=== PATIENT | female | born 1975 | race Hispanic/Latino ===

== ENCOUNTER 2018-07-13 15:18 | Inpatient (IN) | payer SELFPAY ==
[~2018-07-13] VITALS: Ht 154.9 cm; Wt 54.2 kg
[~2018-07-13 15:18] MED LIST: APIX5TAB PO
[2018-07-13 16:16] LABS: BASOPHILS % (AUTO) 0.6 % (0.0-5.0); EOSINOPHILS % (AUTO) 0.7 % (0.0-8.0); HEMATOCRIT 36.3 % (36-48); LYMPHOCYTES % (AUTO) 18.7 % (21.0-51.0); MEAN CORPUSCULAR HEMOGLOBIN 29.1 pg (27.0-33.0); MEAN CORPUSCULAR VOLUME 85.5 fL (79-99); MONOCYTES % (AUTO) 4.9 % (3.0-13.0); NEUTROPHILS % (AUTO) 75.1 % (40.0-77.0); PLATELET COUNT (AUTO) 280 K/uL (130-400); RED BLOOD CELL COUNT(AUTO) 4.25 MIL/uL (4.00-5.50); RED CELL DISTRIBUTION WIDTH 15.1 % (11.0-15.5); WHITE BLOOD COUNT (AUTO) 8.4 K/uL (4.8-10.8)
[2018-07-13 16:29] LABS: CREATININE 0.7 mg/dL (0.5-1.5); POTASSIUM 3.6 mmol/L (3.5-5.1)
[2018-07-13 16:31] LABS: INR 1.01 (0.85-1.15); PARTIAL THROMBOPLASTIN TIME 26.2 SEC (26.3-35.5); PROTHROMBIN TIME 10.6 SEC (9.6-11.6)
[2018-07-13 16:34] LABS: ALBUMIN 3.4 g/dL (3.5-5.0); BILIRUBIN,TOTAL 0.2 mg/dL (0.2-1.0); TOTAL PROTEIN, SERUM 7.1 g/dL (6.0-8.3)
[2018-07-13 16:44] LABS: APPEARANCE,URINE TURBID (CLEAR); BILIRUBIN,URINE NEGATIVE (NEGATIVE); COLOR,URINE RED (YELLOW); GLUCOSE, URINE (UA) NEGATIVE (NEGATIVE); KETONES,URINE NEGATIVE (NEGATIVE); LEUKOCYTE ESTERASE ,URINE TRACE (NEGATIVE); NITRATE,URINE POSITIVE (NEGATIVE); OCCULT BLOOD,URINE LARGE (NEGATIVE); PH,URINE 5.5 (5.0-8.0); PROTEIN,URINE 100 mg/dL (NEGATIVE)
[2018-07-13 16:58] LABS: RBC,URINE Full Field /HPF (0-1)
[2018-07-13 16:59] LABS: BACTERIA,URINE Few /HPF (None Seen)
[2018-07-13 17:00] LABS: HCG,QUAL RESULT NEGATIVE (NEGATIVE)
[2018-07-13 17:03] LABS: AMPHET/METH SCREEN,URINE NEGATIVE (NEGATIVE); BARBITURATE SCREEN, URINE NEGATIVE (NEGATIVE); BENZODIAZEPINES SCREEN,URINE NEGATIVE (NEGATIVE); CANNABINOID SCREEN,URINE NEGATIVE (NEGATIVE); COCAINE SCREEN,URINE NEGATIVE (NEGATIVE); OPIATE SCREEN,URINE NEGATIVE (NEGATIVE); PHENCYCLIDINE SCREEN,URINE NEGATIVE (NEGATIVE)
[2018-07-13] MEDS ORDERED: ONDANSETRON HCL 4 MG/2 ML VIAL IV PRN (19:00)
[2018-07-13] MEDS ORDERED: ACETAMINOPHEN 325 MG TAB PO PRN ×2 (19:00)
[2018-07-13 20:12] VITALS: BP 138/97
[2018-07-13] MEDS: FAMOTIDINE/PF 20 MG/2 ML VIAL IV SCH (21:53)
[2018-07-14] VITALS (12 sets, daily range): BP systolic 121–149; BP diastolic 77–108
--- NOTE | 2018-07-14 04:52 | NUR ---
NEURO STATUS Pt awake,alert,denies numbness or tingling.Pt has residual episode of garbled speech from previous CVA.
[2018-07-14] MEDS: FAMOTIDINE/PF 20 MG/2 ML VIAL IV SCH ×2 (08:34→21:02)
--- NOTE | 2018-07-14 10:45 | NUR ---
DYSPHAGIA EVAL COMPLETE. -S/S OF ASPIRATION. RECOMMEND REGULAR, THIN LIQUID DIET; PILLS WHOLE WITH LIQUIDS. PATIENT INFORMATION: Pt IS A 43 Y.O. FEMALE REFERRED FOR A BEDSIDE DYSPHAGIA EVALUATION SECONDARY TO CVA DIAGNOSIS. Pt COOPERATIVE DURING THE EVALUATION. Pt CURRENTLY ADMITTED SECONDARY TO CVA AND PFO. 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 MBSS COMPLETED IN LAST ADMISSION (04/22/2018): WITHIN FUNCTIONAL LIMITS. EVALUATION: SWALLOW FUNCTION AND EFFICIENCY WITHIN FUNCTIONAL LIMITS. ORAL MOTOR STRENGTH, COORDINATION, AND ROM WITHIN FUNCTIONAL LIMITS. LARYNGEAL ELEVATION/EXCURSION STRONG WITH TIMELY PHARYNGEAL RESPONSE. NO OVERT SIGNS OR SYMPTOMS OF ASPIRATION PRESENT AT BEDSIDE. VOCAL QUALITY CLEAR WITH NO THROAT CLEAR OR COUGH RESPONSE PRESENT. RECOMMENDATIONS: 1. REGULAR TEXTURE, THIN LIQUID DIET; PILLS WHOLE WITH LIQUIDS. 2. COMPENSATORY STRATEGIES (PROPHYLAXIS): *SEATED AT 90 DEGREE ANGLE G-CODES SWALLOWING: [id number] Addendum: 07/14/18 at [address] Amended: Links added.
--- NOTE | 2018-07-14 11:00 | NUR ---
COGNITIVE/LINGUISTIC EVLA COMPLETED. Pt WITH MOTOR SPEECH AND COGNITIVE DEFICITS (FROM PAST CVA), AT BASELINE. PATIENT INFORMATION: Pt IS A 43 Y.O. FEMALE REFERRED FOR A COGNITIVE-LINGUISTIC EVALUATION SECONDARY TO CVA DIAGNOSIS. Pt COOPERATIVE DURING THE EVALUATION. Pt CURRENTLY ADMITTED SECONDARY TO CVA AND PFO. Pt HAS A PAST MEDICAL HISTORY SIGNIFICANT FOR LEFT POSTERIOR FRONTAL LOBE AND LEFT PARIETAL LOBE CVA IN 2008, AND LUMPECTOMY X2. MBSS COMPLETED IN LAST ADMISSION (04/22/2018): WITHIN FUNCTIONAL LIMITS. PLEASE NOTE Pt WITH COGNITIVE/LINGUISTIC DEFICITS FROM PREVIOUS CVA. EVALUATION: Pt AAOX4 INDEPENDENTLY. Pt ABLE TO FOLLOW SIMPLE 1-2 STEP COMMANDS. PT ABLE TO REQUEST WANTS AND NEEDS INDEPENDENTLY. Pt WITH ADEQUATE SAFETY AWARENESS. Pt ABLE TO COMPLETE CONCENTRATION TASKS WITH MINIMUM ASSISTANCE (SIMPLE MATH). Pt IS INTELLIGIBLE AT 80% ACCURACY; MILD DYSARTHRIA. Pt WITH DECREASED WORD FINDING ABILITY (SOME CIRCUMLOCUTION PRESENT). DESPITE AFOREMENTIONED WEAKNESSES, Pt IS AT BASELINE AND IS FUNCTIONAL AND SAFE IN ALL ENVIRONMENT. DEFICITS ARE NOT ACUTE. SKILLED SPEECH THERAPY IS NOT RECOMMENDED AT THIS TIME. G-CODES SWALLOWING: [id number] Addendum: 07/14/18 at 1607 by NIC PHIPPS [facility] Amended: Links added.
--- NOTE | 2018-07-14 11:00 | NUR ---
DR. YOBANY DRAKE. ASSESSED PATIENT, STATED PATIENT NOT TAKING ELIQUIS AT HOME FOR SEVERAL WEEKS NOW. CARDIOLOGY ON THE CASE TO ORDER POSSIBLE DEUCE OR RESTART ELIQUIS. PATIENT STATING WANTS TO GO HOME TODAY.
--- NOTE | 2018-07-14 11:10 | NUR ---
MAGDY ROSE ( CARDIOLOGY ) ROUNDED, SPOKE TO PATIENT REGARDING PROCEDURE DEUCE. STATED MAY GIVE LOVENOX AFTER PROCEDURE. DR. CEM CLIFTON WILL BE PERFORMING DEUCE TODAY.
[2018-07-14] MEDS ORDERED: LIDOCAINE HCL 2% VISCOUS 15 ML UDCUP ONE (13:18)
[2018-07-14] MEDS ORDERED: FENTANYL CITRATE PF 50 MCG/1 ML 2ML VIAL ONE (13:22)
[2018-07-14] MEDS ORDERED: MIDAZOLAM HCL 1 MG/ML 2ML VIAL ONE (13:22)
--- NOTE | 2018-07-14 15:00 | NUR ---
DEUCE WITH BUBBLE STUDY PROCEDURE PERFORMED BY DR Hailey CLIFTON AND TOLERATED PROCEDURE. END OF PROCEDURE AT 1440. PATIENT RECOVERED IN PROCEDURE ROOM. REPORT GIVEN TO Carol DAVID LVN AND PATIENT TRANSPORTED TO [facility] VIA BED AT 1500. DROWSY AND RESPONDS TO STIMULI WITH NO C/O PAIN.
[2018-07-14] MEDS: CEFTRIAXONE SODIUM 1 GM IVP SCH (15:14)
[2018-07-14] MEDS: ENOXAPARIN SODIUM 40 MG/0.4 ML SYRINGE SQ SCH (17:35)
--- NOTE | 2018-07-14 18:46 | NUR ---
Nutrition Intervention: Nutrition consult due to trigger. Pt. admitted with Dx of CVA, PFO. Pt. on Heart Healthy diet with good p.o. intake, as per pt. Labs reviewed(Alb 3.4). LBM: 07/14/18. SR-22, tight. BMI: 22.6, normal. S/p Dysphagia evaluation on 07/14/18- FIELD ASSOCIATE rec. Reg. texture with thin liquids. Recommendations: 1) Continue current diet. 2) Continue to monitor pt's nutritional status. 3) Consult RD as nutrition concerns arise.
--- NOTE | 2018-07-14 19:54 | NUR ---
CM note met with patient and resides at home with 17 yo daughter, independent with adls and ambulation. no dme. no services. 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 states no dc needs. daughter to assist as needed. pt goes to [facility] for md followup provided pt with low income clinics in the area and importance of med compliance and md followup. pt verbalizes understanding. Addendum: 07/14/18 at 1956 by DALLIN GALICIA CM Amended: Links added.
[2018-07-15] VITALS: BP 127/79
[2018-07-15 04:00] VITALS: BP 113/79
--- NOTE | 2018-07-15 06:10 | NUR ---
STATUS Pt remains stable,no complaints overnight.
[2018-07-15 07:00] VITALS: BP 129/85
[2018-07-15] MEDS: ENOXAPARIN SODIUM 40 MG/0.4 ML SYRINGE SQ SCH (09:00)
[2018-07-15] MEDS ORDERED: APIXABAN 5 MG TABLET PO ONE (09:09)
[2018-07-15] MEDS: FAMOTIDINE/PF 20 MG/2 ML VIAL IV SCH (09:21)
[2018-07-15 11:00] VITALS: BP 122/82
[2018-07-15] MEDS: CEFTRIAXONE SODIUM 1 GM IVP SCH (12:41)
[2018-07-15] MEDS ORDERED: ATOR10 PO (13:03)
--- NOTE | 2018-07-15 13:55 | NUR ---
DISCHARGE PATIENT GIVEN DISCHARGE INSTRUCTIONS VIA TEACH BACK. PATIENT TO FOLLOW UP WITH PCP, DR. HAYWOOD AND DR. MEREDITH. RX GIVEN FOR LIPITOR 20MG 1 TAB PO HS. PATIENT INSTRUCTED TO CONTINUE TAKEN ELIQUIS 5MG 1 TAB PO BID INSTRUCTED BY DR. HAYWOOD AND DR. MEREDITH. PATIENT INSTRUCTED TO FOLLOW UP WITH [facility] DR. MEREDITH. SPOKE TO BEVERLY AT [facility], PATIENT WOULD NEED TO PAY $250 TO $300 PRIOR TO RECEIVING MONITOR DUE TO NO INSURANCE. PATIENT STATED IS AWARE OF THE COST DUE TO HAVING HAD THE MONITOR BACK IN MARCH OR APRIL OF THIS YEAR. PATIENT REINSTRUCTED ON THE IMPORTANCE OF TAKING ELIQUIS AND LIPITOR. TIA HANDOUT WAS EXPLAINED AND COPY GIVEN. PATIENT SIGNED IN AGREEMENT. 20G PIV TO RAC DISCONTINUED, TIP INTACT. TELE GARRICK REMOVED, YUN SHIRLEY RETURNED TO TELEMETRY. PATIENT STABLE AT THIS TIME. PATIENT WHEELED DOWNSTAIRS BY CASPER MALCOLM.
[2018-07-15] MEDS ORDERED: APIXABAN 5 MG TABLET PO SCH (21:00)
[2018-07-15] MEDS ORDERED: ATORVASTATIN CALCIUM 20 MG TABLET PO SCH (21:00)
== END 2018-07-15 13:55 | disposition home or self-care (01) | DRG 65 ==
LOC: EDH 15:18 → EDHIP 15:19 → 3CH 19:48
PROVIDERS: ADMIT Family Medicine; ATTEND Family Medicine
DX: I63.9 Cerebral infarction, unspecified (principal); N39.0 Urinary tract infection, site not specified; Q21.1 Atrial septal defect; D68.59 Other primary thrombophilia; E11.9 Type 2 diabetes mellitus without complications; I45.9 Conduction disorder, unspecified; I48.91 Unspecified atrial fibrillation; J45.909 Unspecified asthma, uncomplicated; Z79.01 Long term (current) use of anticoagulants; Z86.73 Personal history of transient ischemic attack (TIA), and cerebral infarction without residual deficits; Z91.14 Patient's other noncompliance with medication regimen
CPT/HCPCS: 36415; 70450; 70551; 80053; 80305; 81001; 81025; 82550; 84484; 85025; 85610; 85730; 92522; 92610; 93005; 93313; 99152; 99153; 99291; A4218; G0378; J0696; J1650; J2250; J3010; J3490

== ENCOUNTER 2018-07-30 08:39 | Emergency (ER) | payer SELFPAY ==
[~2018-07-30 08:39] MED LIST changes: +ATOR10 PO
== END 2018-07-30 09:32 | disposition home or self-care (01) ==
LOC: EDH 08:39
DX: Z76.0 Encounter for issue of repeat prescription (principal); Z86.73 Personal history of transient ischemic attack (TIA), and cerebral infarction without residual deficits
CPT/HCPCS: 99281

== ENCOUNTER 2018-08-08 11:41 | Inpatient (IN) | payer SELFPAY ==
[~2018-08-08] VITALS: Ht 160 cm; Wt 51.7 kg
[2018-08-08 12:05] LABS: BASOPHILS % (AUTO) 0.4 % (0.0-5.0); EOSINOPHILS % (AUTO) 0.3 % (0.0-8.0); HEMATOCRIT 37.7 % (36-48); LYMPHOCYTES % (AUTO) 15.5 % (21.0-51.0); MEAN CORPUSCULAR HEMOGLOBIN 28.8 pg (27.0-33.0); MEAN CORPUSCULAR HGB CONC 33.7 g/dL (32.0-36.0); MEAN CORPUSCULAR VOLUME 85.3 fL (79-99); MONOCYTES % (AUTO) 4.1 % (3.0-13.0); NEUTROPHILS % (AUTO) 79.7 % (40.0-77.0); PLATELET COUNT (AUTO) 273 K/uL (130-400); RED BLOOD CELL COUNT(AUTO) 4.42 MIL/uL (4.00-5.50); RED CELL DISTRIBUTION WIDTH 14.6 % (11.0-15.5); WHITE BLOOD COUNT (AUTO) 7.5 K/uL (4.8-10.8)
[2018-08-08 12:16] LABS: CREATININE 0.7 mg/dL (0.5-1.5); POTASSIUM 3.6 mmol/L (3.5-5.1)
[2018-08-08 12:19] LABS: INR 1.02 (0.85-1.15); PARTIAL THROMBOPLASTIN TIME 25.2 SEC (26.3-35.5); PROTHROMBIN TIME 10.7 SEC (9.6-11.6)
[2018-08-08 12:26] LABS: ALBUMIN 3.7 g/dL (3.5-5.0); BILIRUBIN,TOTAL 0.4 mg/dL (0.2-1.0); TOTAL PROTEIN, SERUM 7.6 g/dL (6.0-8.3)
[2018-08-08 13:40] LABS: APPEARANCE,URINE SL CLOUDY (CLEAR); BILIRUBIN,URINE SMALL (NEGATIVE); COLOR,URINE YELLOW (YELLOW); GLUCOSE, URINE (UA) NEGATIVE (NEGATIVE); KETONES,URINE 5 mg/dL (NEGATIVE); LEUKOCYTE ESTERASE ,URINE NEGATIVE (NEGATIVE); NITRATE,URINE NEGATIVE (NEGATIVE); OCCULT BLOOD,URINE LARGE (NEGATIVE); PROTEIN,URINE 30 mg/dL (NEGATIVE); UROBILINOGEN,URINE 0.2 mg/dL (0.2-1.0)
[2018-08-08 13:47] LABS: BACTERIA,URINE Rare /HPF (None Seen); MUCUS,URINE Few LPF (None Seen); SQUAMOUS EPITHELIAL CELL,UR Rare /HPF (0-2); WBC,URINE 0-1 /HPF (0-1)
[2018-08-08 13:50] LABS: AMPHET/METH SCREEN,URINE NEGATIVE (NEGATIVE); BARBITURATE SCREEN, URINE NEGATIVE (NEGATIVE); BENZODIAZEPINES SCREEN,URINE NEGATIVE (NEGATIVE); CANNABINOID SCREEN,URINE NEGATIVE (NEGATIVE); COCAINE SCREEN,URINE NEGATIVE (NEGATIVE); OPIATE SCREEN,URINE NEGATIVE (NEGATIVE); PHENCYCLIDINE SCREEN,URINE NEGATIVE (NEGATIVE)
[2018-08-08] MEDS ORDERED: SODIUM CHLORIDE 0.9% 1000ML 1,000 ML IV ONE (13:51)
[2018-08-08] MEDS ORDERED: HYDRALAZINE HCL 20 MG/ML VIAL IV PRN (17:45)
[2018-08-08] MEDS ORDERED: ACETAMINOPHEN 325 MG TAB PO PRN ×2 (17:45)
[2018-08-08] MEDS ORDERED: ONDANSETRON HCL 4 MG/2 ML VIAL IV PRN (17:45)
[2018-08-08] MEDS: ATORVASTATIN CALCIUM 20 MG TABLET PO SCH (21:00)
--- NOTE | 2018-08-08 22:25 | NUR ---
Received report from ER Nurse Damaso,Pt. is admitted for Expressive Aphasia.Condition started 2 days prior todays visit.Pt. is NPO and pending to consult Dr. Suarez tomorrow ,for PT and Speech eval.
[2018-08-08 23:00] VITALS: BP 149/103
[2018-08-08 23:38] VITALS: BP 145/92
[2018-08-09] MEDS: SODIUM CHLORIDE 0.9% 1000ML 1,000 ML IV SCH ×3 (01:15→20:57)
--- NOTE | 2018-08-09 01:15 | NUR ---
ASPHALT WORKER Brian was called and notified regarding pt NPO status and MRI brain result .Pt. has severe weakness to right lower and upper extremity and with slight right facial droop.Received order, see order section.
[2018-08-09] MEDS ORDERED: SODIUM CHLORIDE 0.9% 1000ML 1,000 ML IV ONE (01:19)
[2018-08-09] MEDS: FAMOTIDINE/PF 20 MG/2 ML VIAL IV SCH ×3 (01:21→20:56)
[2018-08-09 03:44] VITALS: BP 130/83
--- NOTE | 2018-08-09 07:12 | NUR ---
Bedside report given to incoming NOD using SBAR,all questions answered.Admission papers pending to be signed ,no family around .
[2018-08-09 07:42] VITALS: BP 122/74
--- NOTE | 2018-08-09 08:00 | NUR ---
NEURO ASSESS: DOES NOT FOLLOW FINGER WITH EYES; DIFFICULTY NODDING HEAD NO BUT ABLE TO NOD YES W/O HESITATION WHEN ASKED; NO ATTEMPT AT SPEECH NOTED; UNABLE TO STICK TONGUE; ABLE TO PERFORM EXTREMITY LIFTING FOR [facility] BUT NOT ABLE TO PERFORM VERBAL/DESCRIPTIVE OR PERIPHERAL VISION TESTING.
[2018-08-09] MEDS ORDERED: ASPIRIN 300 MG SUPPOSITORY PR ONE (09:00)
[2018-08-09] MEDS: ASPIRIN 81MG TAB.CHEW PO SCH (09:00)
--- NOTE | 2018-08-09 09:00 | NUR ---
HISTORY PER DAUGHTER, MOTHER AND FRIEND: NO ONE IS CERTAIN WHEN SHE LAST TOOK HER ELIQUIS AND STATE SHE HAS NO INSURANCE TO ASSIST WITH MD APPT OR MEDICATION. 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
[2018-08-09] MEDS: ENOXAPARIN SODIUM 30 MG/0.3 ML SQ SCH (09:08)
--- NOTE | 2018-08-09 10:00 | NUR ---
SKIN INTEGRITY: PT TURNS SELF SIDE TO SIDE IN BED W/O DIFFICULTY.
[2018-08-09 11:18] VITALS: BP 136/84
[2018-08-09 15:53] VITALS: BP 140/90
--- NOTE | 2018-08-09 16:19 | NUR ---
CM note met with patient pt able only to answer by shaking head yes or no. resides at home with 17 yo daughter, independent with adls and ambulation. no dme. no services. dc [place] states no discharge needs. daughter assists pt as needed. pt goes to [facility] for md followup provided pt with low income clinics in the area and importance of med compliance and md followup. pt verbalizes understanding. Addendum: 08/09/18 at 1627 by DALLIN GALICIA CM Amended: Links added.
[2018-08-09 19:21] VITALS: BP 135/78
[2018-08-09] MEDS: ATORVASTATIN CALCIUM 20 MG TABLET PO SCH (20:56)
[2018-08-09 23:22] VITALS: BP 154/89
[2018-08-10] VITALS (7 sets, daily range): BP systolic 144–165; BP diastolic 92–99
[2018-08-10 04:09] LABS: BASOPHILS % (AUTO) 0.7 % (0.0-5.0); HEMATOCRIT 35.1 % (36-48); MEAN CORPUSCULAR HEMOGLOBIN 28.8 pg (27.0-33.0); MEAN CORPUSCULAR HGB CONC 33.8 g/dL (32.0-36.0); MEAN CORPUSCULAR VOLUME 85.1 fL (79-99); MONOCYTES % (AUTO) 7.6 % (3.0-13.0); NEUTROPHILS % (AUTO) 65.7 % (40.0-77.0); NUCLEATED RED BLOOD CELLS 0.1 % (0.0-0.19); PLATELET COUNT (AUTO) 255 K/uL (130-400); RED BLOOD CELL COUNT(AUTO) 4.12 MIL/uL (4.00-5.50); RED CELL DISTRIBUTION WIDTH 14.4 % (11.0-15.5); WHITE BLOOD COUNT (AUTO) 8.1 K/uL (4.8-10.8)
[2018-08-10 04:22] LABS: CREATININE 0.6 mg/dL (0.5-1.5)
[2018-08-10 04:48] LABS: POTASSIUM 2.9 mmol/L (3.5-5.1)
[2018-08-10] MEDS ORDERED: MAGNESIUM 2GM PREMIX 50ML 50 ML IV PRN (05:45)
[2018-08-10] MEDS: POTASSIUM CHLORIDE 20MEQ/100ML 100 ML IV PRN ×2 (05:56→10:39)
[2018-08-10] MEDS: LIDOCAINE HCL-MPF 1% 2ML VIAL IVP PRN ×2 (05:56→10:39)
[2018-08-10] MEDS: SODIUM CHLORIDE 0.9% 1000ML 1,000 ML IV SCH ×2 (06:30→16:43)
[2018-08-10] MEDS: ENOXAPARIN SODIUM 30 MG/0.3 ML SQ SCH (08:51)
[2018-08-10] MEDS: ASPIRIN 81MG TAB.CHEW PO SCH (08:51)
[2018-08-10] MEDS: FAMOTIDINE/PF 20 MG/2 ML VIAL IV SCH ×2 (08:51→20:18)
--- NOTE | 2018-08-10 17:22 | NUR ---
PT extra note 08/09/18: 1) Gait: occasional RLE foot dragging; limited armswing RUE. 2) Reflexes; (-) BLE Babinski 3) Tone (Cassandra): B ankle PFOr 0; B ankle DFor 0; B knee flexors 0 4) MMT; R ankle DF 4-/5; L ankle DF 4/5; B ankle PF 2+/5 (NWB test); B knee ext 4/5. 5) Consulted with RN regarding foot dragging + results of today's exam. Recommended to her to continue to monitor patient for changes seen on functional activities, on neuro checks. Addendum: 08/10/18 at 1726 by CHAGO MORRIS PT Amended: Links added.
[2018-08-10] MEDS: ATORVASTATIN CALCIUM 20 MG TABLET PO SCH (20:17)
[2018-08-11] MEDS: SODIUM CHLORIDE 0.9% 1000ML 1,000 ML IV SCH ×2 (03:15→13:15)
[2018-08-11 03:46] VITALS: BP 140/88
[2018-08-11 03:52] LABS: BASOPHILS % (AUTO) 0.9 % (0.0-5.0); EOSINOPHILS % (AUTO) 0.4 % (0.0-8.0); LYMPHOCYTES % (AUTO) 16.8 % (21.0-51.0); MEAN CORPUSCULAR HEMOGLOBIN 28.2 pg (27.0-33.0); MEAN CORPUSCULAR HGB CONC 33.2 g/dL (32.0-36.0); MEAN CORPUSCULAR VOLUME 84.8 fL (79-99); MONOCYTES % (AUTO) 6.9 % (3.0-13.0); PLATELET COUNT (AUTO) 273 K/uL (130-400); RED BLOOD CELL COUNT(AUTO) 4.49 MIL/uL (4.00-5.50); RED CELL DISTRIBUTION WIDTH 14.6 % (11.0-15.5); WHITE BLOOD COUNT (AUTO) 8.8 K/uL (4.8-10.8)
[2018-08-11 04:01] LABS: CREATININE 0.6 mg/dL (0.5-1.5); MAGNESIUM 1.7 mg/dL (1.80-2.40); POTASSIUM 3.5 mmol/L (3.5-5.1)
[2018-08-11 07:31] VITALS: BP 148/96
[2018-08-11] MEDS: ASPIRIN 81MG TAB.CHEW PO SCH (10:36)
[2018-08-11] MEDS: FAMOTIDINE/PF 20 MG/2 ML VIAL IV SCH ×2 (10:36→20:23)
[2018-08-11] MEDS: ENOXAPARIN SODIUM 30 MG/0.3 ML SQ SCH (10:37)
[2018-08-11 11:16] VITALS: BP 126/83
--- NOTE | 2018-08-11 11:18 | NUR ---
DYSPHAGIA EVAL COMPLETED. -S/S OF ASPIRATION. RECOMMEND MECHANICAL SOFT/CHOPPED, THIN LIQUIDS;PILLS WHOLE WITH LIQUIDS. PATIENT INFORMATION: Pt IS A 43 YEAR OLD FEMALE REFERRED FOR A BEDSIDE DYSPHAGIA EVALUATION SECONDARY TO RIGHT SIDED FACIAL WEAKNESS. Pt COOPERATIVE DURING THE EVALUATION. Pt CURRENTLY ADMITTED SECONDARY TO EXPRESSIVE APHASIA. Pt HAS A PAST MEDICAL HISTORY SIGNIFICANT FOR PATENT FORAMEN OVALE, CVA (07/13/18), . EVALUATION: Pt PRESENTS WITH MILD-MODERATE ORAL DYSPHAGIA CAUSED BY RIGHT SIDED FACIAL WEAKNESS AND DROOPING, EVIDENCED BY MILD RIGHT SIDED SULCUS RESIDUE (CLEARED WITH RE-SWALLOW OR LIQUID WASH). LINGUAL LATERALIZATION AND STRENGTH WITHIN FUNCTIONAL LIMITS. Pt WITH NO OVERT S/S OF ASPIRATION PRESENT AT THIS TIME. RECOMMENDATIONS: 1. MECHANICAL SOFT/CHOPPED, THIN LIQUIDS; PILLS WHOLE WITH LIQUIDS. 2. COMPENSATORY STRATEGIES: *SEATED AT 90 *SLOW RATE *ALTERNATE BITES AND SIPS 3. DYSPHAGIA THERAPY 3-5X WEEK TO INCREASE ORAL MOTOR STRENGTH AND PHARYNGEAL SWALLOW: LTG#1: Pt WILL TOLERATE LEAST RESTRICTIVE DIET TO MEET NUTRITION/HYDRATION WITH NO S/S OF ASPIRATION. LTG#2: SKILLED EDUCATION Pt/FAMILY/STAFF STG#1: Pt WILL PARTICIPATE IN ORAL MOTOR EXERCISES WITH 80% ACCURACY. STG#2: Pt WILL PARTICIPATE IN THERAPEUTIC TRIALS OF REGULAR TEXTURE WITH NO OVERT S/S OF ASPIRATION. STG#3: Pt WILL USE COMPENSATORY STRATEGIES INDEPENDENTLY WITH 100% ACCURACY. STG#4: SKILLED EDUCATION Pt/FAMILY/STAFF. Addendum: 08/11/18 at [address] Amended: Links added.
--- NOTE | 2018-08-11 11:51 | NUR ---
COGNITIVE-LINGUISTIC EVALUATION COMPLETED. Pt PRESENTS WITH MILD COGNITIVE DEFICITS, SEVERE EXPRESSIVE APHASIA. PATIENT INFORMATION: Pt IS A 43 YEAR OLD FEMALE REFERRED FOR A COGNITIVE-LINGUISTIC EVALUATION SECONDARY TO EXPRESSIVE APHASIA PRESENTS DURING ADMISSION. Pt CURRENTLY ADMITTED SECONDARY TO EXPRESSIVE APHASIA. Pt HAS A PAST MEDICAL HISTORY SIGNIFICANT FOR CVA (07/13/2018), PATENT FORAMEN OVALE, AND . EVALUATION: Pt PRESENTS WITH SEVERE EXPRESSIVE APHASIA. Pt FOLLOWED SIMPLE 1-STEP COMMANDS. Pt NOT ABLE TO COMPLETE 2 STEP COMMANDS. Pt COMPLETED YES/NO QUESTIONS WITH 70% ACCURACY. Pt DID NOT VERBALIZE ANY WORDS. Pt DID NOT PRODUCE VERBAL OUT WITH REPETITION. Pt DID NOT COMPLETE ROTARY TASKS. Pt AAOX2 DETERMINED BY YES/NO ANSWERS OF BIOGRAPHICAL QUESTIONS. SKILLED SPEECH THERAPY IS HIGHLY RECOMMENDED AT THIS TIME. MOTOR SPEECH NOT ADDRESSED AT THIS TIME SECONDARY TO NO VERBAL OUTPUT. RECOMMENDATIONS: 1. SKILLED SPEECH THERAPY TARGETING EXPRESSIVE LANGUAGE AND COGNITION 3-5XWK WEEK TOLERATED. *LTG#1: Pt WILL INCREASE COGNITIVE-LINGUISTIC ABILITIES TO PARTICIPATE IN ADLs WITH MODERATE ASSISTANCE. *LTG#2: Pt WILL INCREASE EXPRESSIVE LANGUAGE SKILLS TO EXPRESS WANTS AND NEEDS INDEPENDENTLY. *STG#1: Pt WILL BE AAOX4 INDEPENDENTLY. *STG#2: Pt WILL LABEL COMMON OBJECTS WITH 80% ACCURACY GIVEN MAX CUES. *STG#3: Pt WILL ANSWER SIMPLE WH QUESTIONS IN 1-2 WORD UTTERANCES WITH 80% ACCURACY. *STG#4: Pt WILL IMITATE CV AND WORD APPROXIMATIONS WITH 80% ACCURACY. *STG#5: Pt WILL COMMUNICATE AT WORD LEVEL IN 8/10 TRIALS. G-CODES EXPRESSIVE LANGUAGE: [id number] Addendum: 08/11/18 at 1210 by STUART AGARWAL Amended: Links added.
--- NOTE | 2018-08-11 14:58 | NUR ---
RD Notification Pt with Expressive Aphasia, CVA. Pt followed by CATEGORY CONSULTANT for Cognitive-Linguistic/Dysphagia Evaluation. Mechanical Soft/Chopped Diet recommended by CATEGORY CONSULTANT. RD to monitor for dietary advancement and possible pending Diet education. Pt LBM 08/08/18. Pt monitored labs: BUN 4, Mg 1.70, Chol 114, LDL 70. RD to continue to monitor. Please notify RD as additional nutrition concerns arise. Thank you. Addendum: 08/11/18 at [address] Amended: Links added.
[2018-08-11 15:25] VITALS: BP 124/88
[2018-08-11 19:51] VITALS: BP 150/79
[2018-08-11] MEDS: ATORVASTATIN CALCIUM 20 MG TABLET PO SCH (20:23)
[2018-08-11 23:37] VITALS: BP 145/96
[2018-08-12 03:46] VITALS: BP 142/93
[2018-08-12] MEDS: SODIUM CHLORIDE 0.9% 1000ML 1,000 ML IV SCH (04:06)
--- NOTE | 2018-08-12 05:40 | NUR ---
PATIENT ALERT AND ORIENTED. PATIENT HAS EXPRESSIVE APHASIA, NON VERBAL. R ARM FLACCID. UNABLE TO SQUEEZE. UNABLE TO LIFT R LEG BUT SENSATION INTACT WHEN SOLE OF FOOT IS TOUCHED. VISIBLE R SIDED DROOP. LEFT SIDE IS STRONG.
[2018-08-12 07:00] VITALS: BP 135/87
[2018-08-12] MEDS: FAMOTIDINE/PF 20 MG/2 ML VIAL IV SCH ×2 (09:37→20:55)
[2018-08-12] MEDS: ASPIRIN 81MG TAB.CHEW PO SCH (09:37)
[2018-08-12] MEDS: ENOXAPARIN SODIUM 30 MG/0.3 ML SQ SCH (09:38)
--- NOTE | 2018-08-12 10:00 | NUR ---
PT NOTE: PATIENT PRESENTS WITH DECREASED MOTOR FUNCTION TODAY VS YESTERDAY TO RIGHT SIDE REQUIRING MIN/MOD ASSISTX2 FOR SAFE TRANSFERS AND AMBULATION. Addendum: 08/12/18 at 1419 by URIEL THAPA PT Amended: Links added.
[2018-08-12 11:00] VITALS: BP 133/90
--- NOTE | 2018-08-12 13:15 | NUR ---
SPEECH THERAPY PREFORMED. S: Pt SEATED AT 90 DEGREES IN CHAIR DURING THE SESSION. Pt REQUIRES MAX COAXING TO PARTICIPATE IN SESSION. LUNCH TRAY WAS SET-UP FOR Pt. O: Pt CURRENTLY TARGETING SPEECH AND SWALLOWING GOALS. RESULTS ARE FOLLOWS: -Pt WILL TOLERATE THIN LIQUIDS, MECHANICAL SOFT WITH NO S/S OF ASPIRATION. NO ASPIRATION. -Pt WILL VERBALIZE CV COMBINATION WITH 80% ACCURACY: 0% -Pt WILL COMPLETE ORAL MOTOR EXERCISES WITH 80% ACCURACY: 70% GIVEN MOD CUES -Pt WILL REPEAT ONE WORD UTTERANCES WITH 80% ACCURACY: 0% ACCURACY A: Pt ONLY ABLE TO REPEAT VOWEL SOUNDS. Pt WITH POOR PARTICIPATION AT THIS TIME. EMOTIONAL DISABILITIES TEACHER ATTEMPTED MAX COAXING FOR SPEECH PRODUCTION. EMOTIONAL DISABILITIES TEACHER ENCOURAGED Pt TO PARTICIPATE IN EXERCISES. CONFRONTATIONAL NAMING VIA REPETITION ATTEMPTED AND UNSUCCESSFUL. P: RECOMMEND CONTINUED SKILLED SPEECH THERAPY TARGETING SWALLOWING AND SPEECH GOALS. Addendum: 08/12/18 at 1315 by NIC PHIPPS [facility] Amended: Links added.
--- NOTE | 2018-08-12 14:51 | NUR ---
DC PLAN VISITED WITH PATIENT. PATIENT UNFUNDED. ASKED SNF NO [facility] AVAILABLE. NO [facility]UAN MIGUEL FOR [employer]. ASKED PATIENT IF INTERESTED IN SELF PAY PRICES AT FACILITY. ARIADNE JARVIS. PER DAUGHTER CAN NOT AFFORD PRIVATE PAY OKAY WITH GOING HOME. LET KNOW. Addendum: 08/12/18 at 1454 by CARLOS ALBERTO MAGALLANES RN CM Amended: Links added.
[2018-08-12 16:00] VITALS: BP 143/87
[2018-08-12 19:57] VITALS: BP 145/96
[2018-08-12] MEDS: ATORVASTATIN CALCIUM 20 MG TABLET PO SCH (20:55)
[2018-08-12] MEDS: APIXABAN 5 MG TABLET PO SCH (20:55)
[2018-08-12] MEDS ORDERED: ATORVASTATIN CALCIUM 10 MG TABLET PO SCH (21:00)
[2018-08-13 00:36] VITALS: BP 134/82
[2018-08-13 04:00] VITALS: BP 138/79
--- NOTE | 2018-08-13 05:08 | NUR ---
PATIENT HAS NO CHANGES. REMAINS NONVERBAL. RIGHT LEG AND RIGHT ARM REMAIN FLACCID. PATIENT CANNOT FOLLOW COMMANDS WHEN ADDRESSING THE RIGHT SIDE. PATIENT STRONG ON LEFT SIDE. FACIAL DROOP PRESENT. PATIENT UNABLE TO USE CALL LIGHT. USING BRIEFS DURING THE NIGHT. PATIENT UNABLE TO CALL FOR ASSISTANCE. PLACED NEAR NURSES STATION IN NURSES SITE LINES.
[2018-08-13 07:38] VITALS: BP 133/89
[2018-08-13] MEDS: APIXABAN 5 MG TABLET PO SCH (08:50)
[2018-08-13] MEDS: ASPIRIN 81MG TAB.CHEW PO SCH (08:50)
[2018-08-13] MEDS: FAMOTIDINE/PF 20 MG/2 ML VIAL IV SCH (08:51)
--- NOTE | 2018-08-13 09:00 | NUR ---
SPEECH THERAPY PREFORMED. S: Pt SEATED AT 90 DEGREES IN BED. Pt COOPERATIVE DURING THE SESSION. Pt SEEN CHANGING THE CHANNEL UPON ARRIVAL TO ROOM. O: Pt CURRENTLY TARGETING SPEECH AND SWALLOWING GOALS. RESULTS ARE FOLLOWS: -Pt WILL TOLERATE THIN LIQUIDS, MECHANICAL SOFT WITH NO S/S OF ASPIRATION. NO ASPIRATION DURING TRIALS -Pt WILL VERBALIZE CV COMBINATION WITH 80% ACCURACY: 0% -Pt WILL COMPLETE ORAL MOTOR EXERCISES WITH 80% ACCURACY: 70% GIVEN MOD CUES -Pt WILL REPEAT ONE WORD UTTERANCES WITH 80% ACCURACY: 0% ACCURACY ADDED GOALS: -Pt WILL FOLLOW 1-2 STEP COMMANDS WITH 80% ACCURACY: DURING STRUCTURES TASKS: 30% ACCURACY, DURING INFORMAL TASKS: 80% ACCURACY (2 STEP COMMANDS) -Pt WILL IDENTIFY OBJECTS FROM A FIELD OF 2: DURING STRUCTURED TASKS 0%, DURING INFORMAL TASK: 70% ACCURACY. -Pt WILL IDENTIFY BODY PARTS WITH 80%ACCURACY: DURING STRUCTURED TASKS 20% ACCURACY; DURING INFORMAL TASKS 70% ACCURACY. A: Pt ONLY ABLE TO REPEAT VOWEL SOUNDS. Pt IMITATED LINGUAL EXERCISES ACCURATELY. Pt ABLE TO PROVIDE LINGUAL PLACEMENT FOR SOUND PRODUCTION WITH NO SOUND PRODUCTION PROVIDED. Pt SEEN CHANGING THE CHANNEL UPON RELIEF OPERATOR's ARRIVAL TO ROOM, HOWEVER NOT ABLE TO USE CALL LIGHT TO CALL NURSE. PT DID NOT ATTEMPT TO IDENTIFY COMMON OBJECTS FROM FIELD OF 2, BUT ABLE TO DRINK WATER FROM A NEARBY CUP UPON REQUEST BY RELIEF OPERATOR GIVEN NO VERBAL OR VISUAL CUES (Pt WITH OTHER ITEMS NEAR CUP). Pt ABLE TO HUMM RHYTHM TO SONG, BUT NOT ABLE TO VERBALIZE WORDS. Pt WITH INCONSISTENT ABILITY DEMONSTRATION DURING STRUCTURED TASK. P: RECOMMEND CONTINUED SKILLED SPEECH THERAPY TARGETING SWALLOWING AND SPEECH GOALS. RELIEF OPERATOR COORDINATED CARE WITH NURSE REARDON. Addendum: 08/13/18 at 1111 by STUART AGARWAL Amended: Links added.
[2018-08-13] MEDS ORDERED: ASPI-1005 PO (10:01)
[2018-08-13] MEDS ORDERED: APIX5TAB PO (10:01)
[2018-08-13] MEDS ORDERED: ATOR10 PO (10:01)
[2018-08-13 11:37] VITALS: BP 112/73
--- NOTE | 2018-08-13 11:52 | NUR ---
DR. BOND IN ROOM SPEAKING WITH PT. RE:PLAN OF CARE.
[2018-08-13] MEDS: SODIUM CHLORIDE 0.9% 1000ML 1,000 ML IV SCH (15:15)
[2018-08-13 15:35] VITALS: BP 112/73
--- NOTE | 2018-08-13 17:25 | NUR ---
PT. AMBULATED TO RESTROOM AND BACK TO BED WITH ASSISTANCE FROM PT.'S MOTHER. SLIGHT WEAKNESS TO RIGHT LEG NOTED BUT ABLE TO AMBULATE WITHOUT USE OF WALKER.
== END 2018-08-13 18:15 | disposition home or self-care (01) | DRG 65 ==
LOC: EDH 11:41 → EDHIP 11:42 → 2AH 22:31
PROVIDERS: ADMIT Internal Medicine; ATTEND Internal Medicine
DX: I63.9 Cerebral infarction, unspecified (principal); G81.91 Hemiplegia, unspecified affecting right dominant side; R47.01 Aphasia; R29.705 NIHSS score 5; Z79.01 Long term (current) use of anticoagulants; Z91.14 Patient's other noncompliance with medication regimen; Z86.73 Personal history of transient ischemic attack (TIA), and cerebral infarction without residual deficits; Z82.5 Family history of asthma and other chronic lower respiratory diseases; Z83.3 Family history of diabetes mellitus; Z80.9 Family history of malignant neoplasm, unspecified
CPT/HCPCS: 36415; 70450; 70544; 70547; 70551; 71045; 80048; 80053; 80061; 80305; 81001; 82550; 82948; 83735; 83874; 84132; 84484; 85025; 85610; 85730; 92507; 92522; 92526; 92610; 93005; 97039; 99291; G0378; J1650; J3475; J3480; J3490; J7030

== ENCOUNTER 2018-08-15 11:51 | Emergency (ER) | payer SELFPAY ==
[~2018-08-15 11:51] MED LIST changes: +ASPI-1005 PO
[2018-08-15] MEDS ORDERED: TETANUS/DIPHTHERIA TOXOID [ADULT] 0.5 ML VIAL IM ONE (12:49)
[2018-08-15] MEDS ORDERED: OCTYL 2-CYANOACRYLATE 1 EACH TP ONE (14:27)
== END 2018-08-15 15:48 | disposition home or self-care (01) ==
LOC: EDH 11:51
DX: S01.01XA Laceration without foreign body of scalp, initial encounter (principal); W18.39XA Other fall on same level, initial encounter; Y93.89 Activity, other specified; Y92.89 Other specified places as the place of occurrence of the external cause; Y99.8 Other external cause status
CPT/HCPCS: 12001; 70450; 90471; 90714

== ENCOUNTER 2021-06-20 10:19 | Emergency (ER) | payer MEDICAID ==
[~2021-06-20] VITALS: Ht 165.1 cm; Wt 61.2 kg
[2021-06-20] MEDS ORDERED: FLUT16H NASAL (11:21)
[2021-06-20] MEDS ORDERED: LORA10TA7 PO (11:21)
[2021-06-20 11:29] VITALS: BP 131/86
== END 2021-06-20 11:41 | disposition home or self-care (01) ==
LOC: EDH 10:19
DX: J32.2 Chronic ethmoidal sinusitis (principal); E78.00 Pure hypercholesterolemia, unspecified; Z20.822 Contact with and (suspected) exposure to COVID-19; Z86.73 Personal history of transient ischemic attack (TIA), and cerebral infarction without residual deficits; Z79.82 Long term (current) use of aspirin; Z79.899 Other long term (current) drug therapy
CPT/HCPCS: 87635; 87804 ×2; 87880; 99283; C9803

== ENCOUNTER → 2021-10-25 | Outpatient (CLI) | payer MEDICAID ==
[~2021-10-25] MED LIST changes: +FLUT16H NASAL; +LORA10TA7 PO
[2021-10-25 12:42] LABS: BASOPHILS % (AUTO) 0.7 % (0.0-5.0); EOSINOPHILS % (AUTO) 3.3 % (0.0-8.0); HEMATOCRIT 43.1 % (36-48); LYMPHOCYTES % (AUTO) 27.1 % (21.0-51.0); MEAN CORPUSCULAR HEMOGLOBIN 30.7 pg (27.0-33.0); MEAN CORPUSCULAR HGB CONC 32.9 g/dL (32.0-36.0); MEAN CORPUSCULAR VOLUME 93.3 fL (79-99); MONOCYTES % (AUTO) 5.9 % (3.0-13.0); NEUTROPHILS % (AUTO) 62.7 % (40.0-77.0); PLATELET COUNT (AUTO) 243 K/uL (130-400); RED BLOOD CELL COUNT(AUTO) 4.62 MIL/uL (4.00-5.50); RED CELL DISTRIBUTION WIDTH 14.5 % (11.0-15.5); WHITE BLOOD COUNT (AUTO) 6.1 K/uL (4.8-10.8)
[2021-10-25 12:53] LABS: ALBUMIN 3.6 g/dL (3.5-5.0); CREATININE 0.7 mg/dL (0.5-1.5); POTASSIUM 5.1 mmol/L (3.5-5.1); TOTAL PROTEIN, SERUM 7.6 g/dL (6.0-8.3)
== END | disposition home or self-care (01) ==
LOC: LAB 10:51
PROVIDERS: ATTEND Internal Medicine Cardiovascular Disease
DX: I67.9 Cerebrovascular disease, unspecified (principal)
CPT/HCPCS: 36415; 80053; 80061; 85025

== ENCOUNTER 2022-02-06 05:30 | Observation (INO) | payer MEDICAID ==
[2022-02-01 12:18] LABS: BASOPHILS % (AUTO) 0.8 % (0.0-5.0); EOSINOPHILS % (AUTO) 1.4 % (0.0-8.0); HEMATOCRIT 42.6 % (36-48); MEAN CORPUSCULAR HGB CONC 31.7 g/dL (32.0-36.0); MEAN CORPUSCULAR VOLUME 91.4 fL (79-99); MONOCYTES % (AUTO) 4.5 % (3.0-13.0); PLATELET COUNT (AUTO) 267 K/uL (130-400); RED BLOOD CELL COUNT(AUTO) 4.66 MIL/uL (4.00-5.50); RED CELL DISTRIBUTION WIDTH 14.5 % (11.0-15.5); WHITE BLOOD COUNT (AUTO) 7.3 K/uL (4.8-10.8)
[2022-02-05 09:05] VITALS: BP 133/82
[2022-02-06] VITALS (25 sets, daily range): BP systolic 116–154; BP diastolic 65–99
[~2022-02-06] VITALS: Ht 167.6 cm; Wt 65.8 kg
[~2022-02-06 05:30] MED LIST changes: -FLUT16H NASAL; -LORA10TA7 PO; +OMEP10CA5 PO; +VITAMIN D PO
[2022-02-06] MEDS ORDERED: LACTATED RINGERS 1000ML 1,000 ML IV ONE (05:58)
[2022-02-06] MEDS: CEFAZOLIN SODIUM 2 GM VIAL IVPB SCH ×2 (06:22→07:00)
[2022-02-06] MEDS ORDERED: MIDAZOLAM HCL 1 MG/ML 2ML VIAL ONE (07:04)
[2022-02-06] MEDS ORDERED: PROPOFOL 10 MG/ML 20ML VIAL IV ONE (07:06)
[2022-02-06] MEDS ORDERED: ROCURONIUM 10MG/1ML SYR 10 MG/ML ML ONE (07:06)
[2022-02-06] MEDS ORDERED: ONDANSETRON 4MG INJ ONE ×2 (07:06→09:41)
[2022-02-06] MEDS ORDERED: LIDOCAINE PF 100MG/5ML (2%) SYRINGE 5ML ONE (07:06)
[2022-02-06] MEDS ORDERED: FENTANYL CITRATE PF 50 MCG/1 ML 2ML VIAL ONE ×2 (07:07→07:57)
[2022-02-06] MEDS ORDERED: MEPERIDINE-PF 25 MG/ML SYG ONE ×2 (07:57→09:42)
[2022-02-06] MEDS ORDERED: GLYCOPYRROLATE 1 MG/5 ML SYRINGE ONE (08:12)
[2022-02-06] MEDS ORDERED: NEOSTIGMINE 5MG/5ML SYR IV ONE (08:12)
[2022-02-06] MEDS ORDERED: MEPERIDINE-PF 75 MG/ML SYG IM PRN (11:00)
[2022-02-06] MEDS ORDERED: PROMETHAZINE HCL 25 MG/ML 1ML AMPULE IM PRN ×2 (11:00)
[2022-02-06] MEDS ORDERED: SIMETHICONE 80 MG TAB.CHEW PO PRN (11:00)
[2022-02-06] MEDS ORDERED: IBUPROFEN 600 MG TABLET PO PRN (11:00)
[2022-02-06] MEDS ORDERED: BISACODYL 10 MG SUPP.RECT RC PRN (11:00)
[2022-02-06] MEDS ORDERED: ACETAMINOPHEN WITH CODEINE 1 TAB TAB PO PRN (11:00)
[2022-02-06] MEDS ORDERED: DOCUSATE SODIUM 100 MG CAP PO PRN (11:00)
[2022-02-06] MEDS ORDERED: ONDANSETRON 4MG INJ IVP PRN (11:00)
[2022-02-06] MEDS: DEXTROSE 5 %-0.45 % NACL 1,000 ML IV PRN (18:58)
[2022-02-07 02:52] VITALS: BP 148/91
[2022-02-07] MEDS: DEXTROSE 5 %-0.45 % NACL 1,000 ML IV PRN (02:59)
[2022-02-07 05:31] LABS: HEMATOCRIT 38.8 % (36-48); MEAN CORPUSCULAR HEMOGLOBIN 29.5 pg (27.0-33.0); MEAN CORPUSCULAR HGB CONC 32.5 g/dL (32.0-36.0); MEAN CORPUSCULAR VOLUME 90.9 fL (79-99); RED BLOOD CELL COUNT(AUTO) 4.27 MIL/uL (4.00-5.50); RED CELL DISTRIBUTION WIDTH 14.4 % (11.0-15.5); WHITE BLOOD COUNT (AUTO) 14.3 K/uL (4.8-10.8)
[2022-02-07] MEDS ORDERED: ACETAMINOPHEN WITH CODEINE 1 TAB TAB PO PRN (06:00)
[2022-02-07] MEDS ORDERED: IBUPROFEN 800 MG TAB PO PRN (06:00)
[2022-02-07] MEDS ORDERED: HYDROCODONE/ACETAMINOPHEN 5/325 MG TAB PO PRN (06:00)
[2022-02-07 07:26] VITALS: BP 131/94
== END 2022-02-07 12:30 | disposition home or self-care (01) ==
LOC: DAH 05:30 → WSH 05:31
PROVIDERS: ADMIT Obstetrics & Gynecology; ATTEND Obstetrics & Gynecology
DX: N92.1 Excessive and frequent menstruation with irregular cycle (principal); Z20.822 Contact with and (suspected) exposure to COVID-19; D25.9 Leiomyoma of uterus, unspecified; N85.2 Hypertrophy of uterus; K46.9 Unspecified abdominal hernia without obstruction or gangrene; D50.9 Iron deficiency anemia, unspecified; E78.5 Hyperlipidemia, unspecified; F41.9 Anxiety disorder, unspecified; K21.9 Gastro-esophageal reflux disease without esophagitis; Z86.73 Personal history of transient ischemic attack (TIA), and cerebral infarction without residual deficits; Z79.899 Other long term (current) drug therapy
CPT/HCPCS: 84703 ×2; 85025; 86850 ×2; 86900 ×2; 86901 ×2; 87426; 36415 ×3; 58552; 57268; 96372; 85027; G0378 ×25; J7030; A4344; A4215 ×2; J7120; J3010; J3490 ×3; J2710; J2250; J2405 ×2; J2175 ×3; J0690; C1769 ×2; A4649 ×2; A4223; A4222; A4221; A4663; A4600; A4510; J2550; J2001; J2704

== ENCOUNTER → 2022-06-04 | Outpatient (CLI) | payer MEDICAID ==
[2022-06-04 12:49] LABS: BASOPHILS % (AUTO) 0.6 % (0.0-5.0); HEMATOCRIT 45.9 % (36-48); LYMPHOCYTES % (AUTO) 21.1 % (21.0-51.0); MEAN CORPUSCULAR HEMOGLOBIN 28.8 pg (27.0-33.0); MEAN CORPUSCULAR HGB CONC 31.2 g/dL (32.0-36.0); MEAN CORPUSCULAR VOLUME 92.4 fL (79-99); MONOCYTES % (AUTO) 5.3 % (3.0-13.0); NEUTROPHILS % (AUTO) 70.6 % (40.0-77.0); PLATELET COUNT (AUTO) 272 K/uL (130-400); RED BLOOD CELL COUNT(AUTO) 4.97 MIL/uL (4.00-5.50); RED CELL DISTRIBUTION WIDTH 15.5 % (11.0-15.5); WHITE BLOOD COUNT (AUTO) 8.3 K/uL (4.8-10.8)
[2022-06-04 13:16] LABS: ALBUMIN 3.7 g/dL (3.5-5.0); CREATININE 0.8 mg/dL (0.5-1.5); POTASSIUM 4.5 mmol/L (3.5-5.1); TOTAL PROTEIN, SERUM 7.7 g/dL (6.0-8.3)
== END | disposition home or self-care (01) ==
LOC: LAB 09:56
PROVIDERS: ATTEND Internal Medicine Cardiovascular Disease
DX: G45.9 Transient cerebral ischemic attack, unspecified (principal)
CPT/HCPCS: 36415; 80053; 80061; 85025

== ENCOUNTER 2024-07-30 00:03 | Emergency (ER) | payer MEDICAID ==
[~2024-07-30] VITALS: Ht 162.6 cm; Wt 73.0 kg
--- NOTE | 2024-07-30 00:50 | ERN ---
ED Note History of Present Illness Stated Complaint: C/O VAGINAL SPOTTING Chief Complaint: Vaginal Problems/Bleeding Time Seen by MD: 00:09 Time Seen by Midlevel: 00:09 Dictation: The patient is a 49-year-old female with a history of CVA on Eliquis, right- sided weakness, hysterectomy who presents to the emergency department with complaints of vaginal spotting onset five days ago. Patient reports spotting is mild and only has pink tinged discharge. Denies any abdominal pain. Denies any nausea vomiting or diarrhea. Allergies: Coded Allergies: No Known Drug Allergies (Unverified Allergy, Unknown, 04/21/18) Home Meds Active Scripts Aspirin (ASPIRIN 81MG CHEW TAB) 81 Mg Tab.chew, 81 MG PO DAILY for 30 Days, #30 TAB.CHEW Prov:HOANG BOND Jr., MD 08/13/18 Atorvastatin Calcium (LIPITOR) 20 Mg Tab, 20 MG PO HS for 30 Days, #30 TAB 0 Refills Prov:HOANG BOND Jr., MD 08/13/18 Apixaban (Eliquis) 5 Mg Tablet, 5 MG PO Q12H9 for 30 Days, #60 TAB Prov:HOANG BOND Jr., MD 08/13/18 Reported Medications [Vitamin D] No Conflict Check, PO WEEKLY 02/05/22 Omeprazole (Omeprazole) 10 Mg Capsule.dr, 10 MG PO AM, CAP 02/05/22 Past Medical History Past Medical History: CVA, High Cholesterol, Hypertension Additional Past Medical Hx: RIGHT SIDE WEAKNESS, Surgical History: Hysterectomy Surgical History Other: BILATERAL BREAST BIOPSY Social History: Other RN Note Reviewed/Agreed w/PFSH: Yes Review of System Dictation Constitutional: Negative for fever,chills, and weight loss Eyes: Negative for injury, pain,redness, and discharge ENT: Negative for injury,pain or swelling Cardiovascular: Negative for chest pain, palpitations, and edema Respiratory: Negative for shortness of breath, cough, and wheezing, Abdomen/GI: Negative for abdominal pain, nausea, vomiting, diarrhea, and constipation Back: Negative for injury and pain : Negative for injury positive for vaginal bleeding MS/Extremity: Negative for injury and deformity Skin: Negative for rash, and discoloration Neuro: Negative for headache, weakness, numbness, tingling, and seizure Psych: Negative for suicide ideation, homicidal ideation, and hallucinations Initial Vital Sign VS Vital Signs Date Time Temp Pulse Resp B/P (MAP) Pulse Ox O2 Delivery O2 Flow Rate FiO2 07/30/24 00:06 98.8 83 20 145/101 98 Room Air 07/30/24 01:45 0 21 Physical Exam Dictation Vital Signs reviewed General Appearance: Alert, oriented x 3, no acute distress, well developed, nourished. Head and Face: non-traumatic. Eyes: PERRL, pink conjunctivas, eyelid no trauma, anterior chamber with arcus senilis. Ears: Pinnas intact and no signs of trauma or erythema ear canals clear and no discharge TM no erythema Nose: No discharge, no bleeding. Oropharynx: Mouth normal, tongue pink. pharynx clear,no erythema, tonsils no exudates, no abscesses noted, mucous membrane moist Neck: Supple, non-tender, no thyromegaly, no masses, no JVD, no bruits Breast:Deferred Chest:No tenderness, no crepitus, no paradoxical movement, no retractions Lungs:Clear, well-ventilated, symmetric, no rales, no wheezing, no rhonchi, no stridor, good breath sounds bilaterally Heart: Regular rate, regular rhythm, no murmur, no gallops Vascular: no peripheral edema, Abdomen: Soft, positive bowel sounds, nondistended, no guarding, nontender, no rebound, no masses no hepatomegaly, no splenomegaly, no Kim's sign, no hernias. Rectal: Deferred Genital: Deferred Neurological: Normal speech, motor function intact, sensory function intact Musculoskeletal: Neck nontender, full range of motion, back nontender, full range of motion, Extremities: nontender, full range of motion Skin: Color pink, dry, no turgor, no rash, no lacerations, no abrasions, no contusions. Lymphatic: Deferred Results (Laboratory/Radiology) Laboratory/Radiology Laboratory Tests Test 07/30/24 01:28 07/30/24 01:35 White Blood Count 9.0 K/uL (4.8-10.8) Red Blood Count 4.68 MIL/uL (4.00-5.50) Hemoglobin 13.5 g/dL (12.0-16.0) Hematocrit 41.9 % (36-48) Mean Corpuscular Volume 89.5 fL (79-99) Mean Corpuscular Hemoglobin 28.8 pg (27.0-33.0) Mean Corpuscular Hemoglobin Concent 32.2 g/dL (32.0-36.0) Red Cell Distribution Width 14.7 % (11.0-15.5) Platelet Count 280 K/uL (130-400) Mean Platelet Volume 10.3 fL (7.5-10.5) Immature Granulocyte % (Auto) 0.3 % (0-1) Neutrophils (%) (Auto) 60.8 % (40.0-77.0) Lymphocytes (%) (Auto) 29.7 % (21.0-51.0) Monocytes (%) (Auto) 6.1 % (3.0-13.0) Eosinophils (%) (Auto) 2.4 % (0.0-8.0) Basophils (%) (Auto) 0.7 % (0.0-5.0) Neutrophils # (Auto) 5.5 K/uL (1.8-7.7) Lymphocytes # (Auto) 2.7 K/uL (1.0-4.8) Monocytes # (Auto) 0.6 K/uL (0.1-1.0) Eosinophils # (Auto) 0.22 K/uL (0.00-0.70) Basophils # (Auto) 0.06 K/uL (0.00-0.20) Absolute Immature Granulocyte (auto 0.03 K/uL (0-1) Nucleated Red Blood Cells 0.0 % (0.0-0.19) Sodium Level 143 mmol/L (136-145) Potassium Level 4.0 mmol/L (3.5-5.1) Chloride Level 107 mmol/L (101-111) Carbon Dioxide Level 30 mmol/L (21-32) Blood Urea Nitrogen 10 mg/dL (7-18) Creatinine 0.5 mg/dL (0.5-1.0) Glomerular Filtration Rate Calc 116 mL/min (>90) Random Glucose 118 mg/dL (70-105) H Total Calcium 8.9 mg/dL (8.5-10.1) Urine Color LIGHT-YELLOW (YELLOW) Urine Appearance CLEAR (CLEAR) Urine pH 6.0 (5.0-8.0) Urine Specific [place] 1.028 (1.001-1.031) Urine Protein 10 mg/dL (NEGATIVE) H Urine Glucose (UA) NEGATIVE mg/dL (NEGATIVE) Urine Ketones NEGATIVE mg/dL (NEGATIVE) Urine Occult Blood +- (TRACE) (NEGATIVE) H Urine Nitrate 2+ (NEGATIVE) H Urine Bilirubin NEGATIVE mg/dL (NEGATIVE) Urine Urobilinogen 0.2 mg/dL (0.2-1.0) Urine Leukocyte Esterase NEGATIVE Dory/uL Urine RBC 2-5 /HPF (0-1) H Urine WBC 6-10 /HPF (0-1) H Urine Squamous Epithelial Cells RARE /HPF (0-2) Urine Bacteria FEW /HPF (None Seen) Urine Yeast RARE /HPF (None Seen) Labs Reviewed?: Yes ED Course ED Course Orders Procedure Category Date Status Time Cbc With Differential LAB 07/30/24 Complete 00: Basic Metabolic Panel LAB 07/30/24 Complete 00: Us Pelvic Non-Ob Comp US 07/30/24 Taken 00:28 Urinalysis Profile LAB 07/30/24 Complete 00:28 Culture Urine MIKI 07/30/24 In Process 01:46 Ceftriaxone 1g Vial PHA 07/30/24 Complete (Rocephine 1g Inj) 02:00 Current Medications Medications (Trade) Dose Ordered Sig/Jeannine Route PRN Reason Start Time Stop Time Status Last Admin Dose Admin Ceftriaxone Sodium (ROCEphine 1G INJ) 1 gm ONCE ONCE IVPB 07/30/24 02:00 07/30/24 02:01 DC 07/30/24 02:04 Vital Signs Date Time Temp Pulse Resp B/P (MAP) Pulse Ox O2 Delivery O2 Flow Rate FiO2 07/30/24 01:45 99.0 86 18 147/89 98 Room Air* 0 21 07/30/24 00:06 98.8 83 20 145/101 98 Room Air Medical Decision Making MDM The patient is a 49-year-old female with a history of CVA on Eliquis, right- sided weakness, hysterectomy who presents to the emergency department with complaints of vaginal spotting onset five days ago. Patient reports spotting is mild and only has pink tinged discharge. Denies any abdominal pain. Denies any nausea vomiting or diarrhea. CBC showed no leukocytosis, no anemia, normal platelets, chemistry showed no electrolyte imbalance, normal renal function, urinalysis positive for nitrites. Patient will be giving IV Rocephin and treated for UTI at a as outpatient. Ultrasound revealed no acute pathology. Patient with a only vaginal spotting. Stable vital signs, in no acute distress. Patient with a soft and nontender abdomen. Patient instructed to follow up with OBGYN. Labs and imaging discussed with the patient and patient's family member who agreed to be discharged. Differential diagnosis: UTI, anemia, vaginal bleeding Need for hospitalization: Patient does not meet criteria for hospitalization. There are no social concerns with this patient. DX & DISP Disposition: Discharge Departure Impression: Primary Impression: Vaginal bleeding Additional Impression: UTI (urinary tract infection) Condition: Stable Scripts Nitrofurantoin Monohyd/M-Cryst (Macrobid 100 mg Capsule) 100 Mg Capsule 1 CAP PO BID for 5 Days, #10 CAP 0 Refills Prov: INDRA CHAND 07/30/24 Additional Instructions: Please follow up with your primary doctor in 1-2 days. Please return to ER if symptoms worsen. Taking medications as prescribed. FOLLOW-UP WITH PRIMARY CARE PROVIDER IN 1 TO 2 DAYS. TAKE MEDICATIONS DIRECTED HERE IN THE EMERGENCY ROOM. OKAY TO CONTINUE HOME MEDICATIONS UNLESS OTHERWISE DISCUSSED DURING YOUR VISIT IN THE EMERGENCY ROOM TODAY. RETURN TO YOUR NEAREST EMERGENCY ROOM IF SYMPTOMS WORSEN OR IF THERE IS NO IMPROVEMENT. CALL 911 IF YOU NEED IMMEDIATE ASSISTANCE. TAKE TYLENOL OR MOTRIN [id number] NEEDED AND IF NO CONTRAINDICATIONS ARE PRESENT. INCREASE ORAL HYDRATION. A WOUND CULTURE OR URINE CULTURE WAS ORDERED HERE IN THE EMERGENCY ROOM DEPARTMENT PLEASE FOLLOW-UP WITH PRIMARY CARE PROVIDER AND ADVISE THEM TO GET REPEAT PORTS FROM OUR FACILITY. IF YOU HAD ANY WENDY WRAP/SPLINTS THAT WERE APPLIED HERE, PLEASE DO NOT REMOVE THEM UNTIL YOU SEE YOUR PRIMARY CARE OR SPECIALTY. Referrals: DARIEN BLANK (PCP) Time of Disposition: 02:18 I have reviewed the case, and I agree with, Diagnosis and Plan INDRA CHAND Jul 30, 2024 00:50
[2024-07-30 01:35] LABS: BASOPHILS # (AUTO) 0.06 K/uL (0.00-0.20); BASOPHILS % (AUTO) 0.7 % (0.0-5.0); EOSINOPHILS # (AUTO) 0.22 K/uL (0.00-0.70); EOSINOPHILS % (AUTO) 2.4 % (0.0-8.0); HEMATOCRIT 41.9 % (36-48); IMMATURE GRANULOCYTE ABSOLUTE 0.03 K/uL (0-1); LYMPHOCYTES # (AUTO) 2.7 K/uL (1.0-4.8); LYMPHOCYTES % (AUTO) 29.7 % (21.0-51.0); MEAN CORPUSCULAR HEMOGLOBIN 28.8 pg (27.0-33.0); MEAN CORPUSCULAR HGB CONC 32.2 g/dL (32.0-36.0); MEAN CORPUSCULAR VOLUME 89.5 fL (79-99); MONOCYTES # (AUTO) 0.6 K/uL (0.1-1.0); MONOCYTES % (AUTO) 6.1 % (3.0-13.0); NEUTROPHILS # (AUTO) 5.5 K/uL (1.8-7.7); NEUTROPHILS % (AUTO) 60.8 % (40.0-77.0); PLATELET COUNT (AUTO) 280 K/uL (130-400); RED BLOOD CELL COUNT(AUTO) 4.68 MIL/uL (4.00-5.50); RED CELL DISTRIBUTION WIDTH 14.7 % (11.0-15.5)
[2024-07-30 01:43] LABS: CREATININE 0.5 mg/dL (0.5-1.0)
[2024-07-30 01:45] LABS: APPEARANCE,URINE CLEAR (CLEAR); BILIRUBIN,URINE NEGATIVE (NEGATIVE); COLOR,URINE LIGHT-YELLOW (YELLOW); GLUCOSE, URINE (UA) NEGATIVE (NEGATIVE); KETONES,URINE NEGATIVE (NEGATIVE); LEUKOCYTE ESTERASE ,URINE NEGATIVE Leu/uL (NEGATIVE); NITRATE,URINE 2+ (NEGATIVE); PROTEIN,URINE 10 mg/dL (NEGATIVE); UROBILINOGEN,URINE 0.2 mg/dL (0.2-1.0)
[2024-07-30 01:46] LABS: ADD UA MICROSCOPIC YES
[2024-07-30 01:49] LABS: BACTERIA,URINE FEW /HPF (None Seen); MUCUS,URINE FEW LPF (None Seen); SQUAMOUS EPITHELIAL CELL,UR RARE /HPF (0-2); YEAST,URINE BUDDING RARE /HPF (None Seen)
[2024-07-30] MEDS: cefTRIAXone 1G VIAL IVPB ONE (02:04)
[2024-07-30] MEDS ORDERED: NITR100C4 PO (02:18)
[2024-07-30 02:36] VITALS: BP 142/76; PULSE 78; RESP 18; TEMP 98.6; O2SAT 99
--- NOTE | 2024-07-30 09:09 | HMCIMG ---
Pelvic transabdominal ultrasound -female Findings: The uterus and ovaries are surgically absent. No fluid collections or masses or free fluid are identified in the pelvis. Impression: Status post hysterectomy and bilateral salpingo-oophorectomy.
== END 2024-07-30 02:38 | disposition home or self-care (01) ==
LOC: EDH 00:03
DX: N93.9 Abnormal uterine and vaginal bleeding, unspecified (principal); N39.0 Urinary tract infection, site not specified; E78.00 Pure hypercholesterolemia, unspecified; I10 Essential (primary) hypertension; Z79.82 Long term (current) use of aspirin; Z86.73 Personal history of transient ischemic attack (TIA), and cerebral infarction without residual deficits; Z90.710 Acquired absence of both cervix and uterus; Z90.722 Acquired absence of ovaries, bilateral
CPT/HCPCS: 99285; 96365; 76856; 80048; 85025; 87086; 81001; 36415; J0696